=== PATIENT | male | born 1960 ===

== ENCOUNTER 2018-07-08 20:21 | Emergency (ER) | payer BC ==
[2018-07-08 20:38] VITALS: BP 145/77; PULSE 80; RESP 20; TEMP 98.9; O2SAT 97
[2018-07-08] MEDS ORDERED: Amoxicillin-Clav 875-125 mg Tab PO STA (20:57)
--- NOTE | 2018-07-08 20:58 | C.PDOC ---
History Of Present Illness 57 year old male patient presents to the ER with c/o right ear pain that developed yesterday. Patient reports he was on vacation in [place] and visit a local doctor there who gave him neomycin/dexamethasone/lidocaine. Patient came back today and said the ear drops gave no relief. Patient denies fever, ear discharge, change in hearing and no pain behind ear. Time Seen by Provider: 07/08/18 20:40 Chief Complaint (Nursing): ENT Problem History Per: Patient History/Exam Limitations: None Onset/Duration Of Symptoms: Days (x2) Current Symptoms Are (Timing): Still Present Quality (Ear): denies: Discharge Past Medical History Reviewed: Historical Data, Nursing Documentation, Vital Signs Vital Signs: Last Vital Signs Temp 98.9 F 07/08/18 20:25 Pulse 80 07/08/18 20:25 Resp 20 07/08/18 20:25 BP 145/77 07/08/18 20:25 Pulse Ox 97 07/08/18 21:42 Surgical History: Cholecystectomy Family History: States: No Known Family Hx - Social History Hx Alcohol Use: Yes Hx Substance Use: No Review Of Systems Except As Marked, All Systems Reviewed And Found Negative. Constitutional: Negative for: Fever ENT: Positive for: Ear Pain, Other (no change in hearing; no pain over mastoid bone). Negative for: Ear Discharge Physical Exam - Physical Exam Appears: Well, Non-toxic, No Acute Distress Skin: Normal Color, Warm, Dry Head: Atraumatic, Normacephalic Eye(s): bilateral: Normal Inspection Ear(s): Right: Other (redness and swelling on outer ear; TM not visualized due to swelling of ear canal; no pain over mastoid bone; no lymphadenopathy) Nose: Normal Oral Mucosa: Moist Tongue: Normal Appearing Lips: Normal Appearing Gingiva: Normal Appearing Throat: Normal Neck: Normal ROM, Supple Lymphatic: No Adenopathy Chest: No Deformity Neurological/Psych: Oriented x3, Normal Speech, Normal Motor, Normal Sensation, Normal Reflexes Gait: Steady ED Course And Treatment O2 Sat by Pulse Oximetry: 97 (RA) Pulse Ox Interpretation: Normal Medical Decision Making Medical Decision Making: Impression: right outer ear pain Plans: -- amoxicillin -- ibuprofen Reassess: Patient is resting comfortably. Pain much improved. Patient is advised to f/u with ENT in 1-2 days. Disposition Counseled Patient/Family Regarding: Diagnosis, Need For Followup, Rx Given - Disposition Referrals: Jordi Hayes MD [Staff Provider] - Disposition: HOME/ ROUTINE Disposition Time: 21:02 Condition: STABLE Additional Instructions: FOLLOW UP WITH DR. HAYES ON TUESDAY FOR RE-EVALUATION. CONTINUE YOUR NEOMYCIN/DEXAMETHASONE/LIDOCAINE DROPS DIRECTED. IF SYMPTOMS GET WORSE OR ANY NEW CONCERNING SYMPTOMS DEVELOP RETURN TO ED. 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 - Scribe Statement The provider has reviewed the documentation as recorded by the Randolph Muhammad Do All medical record entries made by the Scribe were at my direction and personally dictated by me. I have reviewed the chart and agree that the record accurately reflects my personal performance of the history, physical exam, medical decision making, and the department course for this patient. I have also personally directed, reviewed, and agree with the discharge instructions and disposition.
[2018-07-08] MEDS ORDERED: Amoxicillin-Clav 875-125 mg Tab PO ONE (21:05)
== END 2018-07-08 21:17 | disposition home or self-care (01) ==
LOC: C.ER 20:21
DX: H66.90 Otitis media, unspecified, unspecified ear (principal)